=== PATIENT | female | born 1995 | race Caucasian/White ===

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

== ENCOUNTER 2018-11-18 21:57 | Emergency (ER) | payer OTHER ==
[~2018-11-18] VITALS: Ht 160 cm; Wt 54.8 kg
[~2018-11-18 21:57] MED LIST changes: +CEPH-443 PO; +IBUP-1541 PO; +IBUP-1542 PO; +IBUP-1561 PO; -IBUP400T22 PO; +PHEN177S43 MT
[2018-11-18 22:07] VITALS: Ht 160 cm; Wt 54.8 kg
[2018-11-18] MEDS ORDERED: IBUPROFEN 600 MG TAB PO ONE (23:30)
[2018-11-19 01:19] VITALS: BP 95/54; PULSE 111; RESP 18
--- NOTE | 2018-11-19 02:12 | ERD ---
ER Documentation Chief Complaint Chief Complaint C/O ST, FEVER AND CHILLS X2 DAYS, TAKING AMOXICILLIN HPI 23-year-old female presenting to the emergency department complaining of severe sore throat. Symptoms began 2 days ago. She went to urgent care earlier today and started amoxicillin after was diagnosed with strep pharyngitis. She states the test at the urgent care was negative but she was started on antibiotics anyway in case of false negative. She has been taking Advil with some relief. Sore throat is worse when swallowing foods and drinks. ROS All systems reviewed and are negative except as per history of present illness. Medications Home Meds Active Scripts Phenol* (Chloraseptic* [place]) 177 Ml [place].pump, 2 SPRAY [place] Q2H PRN for SORE THROAT, #1 BOTTLE Prov:ZENY PARKER PA-C 11/19/18 Ibuprofen* (Motrin*) 600 Mg Tab, 600 MG PO Q6, #30 TAB Prov:ZENY PARKER PA-C 11/19/18 Nitrofurantoin Monohyd Macrocr* (Macrobid*) 100 Mg Capsr, 100 MG PO BID for 14 Days, CAP Prov:DOREEN TAVAREZ PA-C 09/23/16 Cephalexin* (Keflex*) 500 Mg Capsule, 500 MG PO TID for 7 Days, CAP Prov:DOREEN TAVAREZ PA-C 09/23/16 Nitrofurantoin Monohyd Macrocr* (Macrobid*) 100 Mg Capsr, 100 MG PO BID for 5 Days, CAP Prov:TL NOLAN PA-C 06/09/16 Ibuprofen* (Motrin*) 400 Mg Tab, 400 MG PO Q8, #30 TAB 0 Refills Prov:CHI POWERS PA-C 07/30/15 Erythromycin (Erythromycin Opth) 3.5 Gm Oint..gm., 1 APPLIC BOTH EYES QID, #1 BOTTLE 0 Refills Prov:CHI POWERS PA-C 07/30/15 Moxifloxacin Hcl* (Vigamox*) 0.5% - 3 Ml Opht, 1 DROP BOTH EYES TID, #1 BOTTLE Prov:CHI POWERS PA-C 07/30/15 Ibuprofen* (Ibuprofen*) 400 Mg Tablet, 400 MG PO Q6H PRN for PAIN, #30 TAB Prov:PHU FREEDC 12/03/14 Allergies Allergies: Coded Allergies: acetaminophen (Verified Allergy, Unknown, 09/23/16) PMhx/Soc Medical and Surgical Hx: pt denies Medical Hx, pt denies Surgical Hx History of Surgery: No Anesthesia Reaction: No Hx Neurological Disorder: No Hx Respiratory Disorders: No Hx Cardiac Disorders: No Hx Psychiatric Problems: No Hx Miscellaneous Medical Probl: Yes (frequent UTIs) Hx Alcohol Use: No Hx Substance Use: No Hx Tobacco Use: No Smoking Status: Never smoker Physical Exam Vitals Vital Signs Date Temp Pulse Resp B/P (MAP) Pulse Ox O2 O2 Flow FiO2 Time Delivery Rate 11/19/18 99.6 111 18 95/54 (68) 96 01:19 11/18/18 100.5 129 21 101/54 100 22:07 (70) Physical Exam Const: No acute distress Head: Atraumatic Eyes: Normal Conjunctiva ENT: Normal External Ears, Nose and Mouth. Bilateral tonsillar hypertrophy with significant amount of exudate present. Uvula is midline. Airway is patent. Neck: Full range of motion. No meningismus. Resp: Clear to auscultation bilaterally Cardio: Regular rate and rhythm, no murmurs Abd: Soft, non tender, non distended. Normal bowel sounds Skin: No petechiae or rashes Back: No midline or flank tenderness Ext: No cyanosis, or edema Neur: Awake and alert Psych: Normal Mood and Affect Results 24 hrs Current Medications Medications Dose Sig/Gaby Start Time Status Last (Trade) Ordered Route PRN Stop Time Admin Dose Reason Admin Ibuprofen 600 mg ONCE ONCE 11/18/18 DC 11/18/18 (Motrin) PO 23:30 23:33 11/18/18 23:31 Procedures/MDM 23-year-old female is presenting to the emergency department complaining of sore throat. Examination revealed signs and symptoms consistent with viral pharyngitis. Rapid strep in the department was negative. No evidence to suggest peritonsillar abscess, retropharyngeal abscess, sepsis, meningitis, or other emergent process. Patient is stable and appropriate for discharge and further outpatient management with prescriptions. She is advised to return to the department immediately for any new or worsening or concerning symptoms. Patient was in agreement with the diagnosis, plan company for follow-up, return precautions. Departure Diagnosis: Primary Impression: Pharyngitis Condition: Fair Patient Instructions: Pharyngitis, Viral Additional Instructions: Call your primary care doctor TOMORROW for an appointment during the next 1-2 days.See the doctor sooner or return here if your condition worsens before your appointment time. ZENY PARKER PA-C Nov 19, 2018 02:12
== END 2018-11-19 01:20 | disposition home or self-care (01) ==
LOC: FTE 21:57
DX: J02.9 Acute pharyngitis, unspecified (principal)
CPT/HCPCS: 86308; 87880; Z7502; Z7610; 99283